=== PATIENT | female | born 1945 | race Caucasian/White ===

== ENCOUNTER 2017-05-09 13:25 | Emergency (ER) | payer MEDICARE, OTHER ==
[~2017-05-09] VITALS: Ht 167.6 cm; Wt 72.7 kg
[~2017-05-09 13:25] MED LIST: AMLO5TAB4 PO; ASPI-535 PO; EZET1TAB9 PO; HYT2 PO; LOSA1TAB9 PO; METO-104 PO; VALS1TAB65 PO
[2017-05-09 13:28] VITALS: Ht 167.6 cm; Wt 72.7 kg
[2017-05-09] MEDS ORDERED: ASPIRIN 81 MG TAB PO STA (14:02)
--- NOTE | 2017-05-09 14:08 | ERD ---
ER Documentation Chief Complaint Chief Complaint Pt RA 100 with c/c CP and SOB and L scapula pain. HPI Patient is a 71-year-old female who presents with sudden onset, constant, moderate, cramping pain to her left upper back and shoulder for 1 hour. She reports feeling anxious and slightly short of breath. She denies diaphoresis, nausea or vomiting. She denies cough. She denies chest pain. She reports that she went to her primary care doctor's office today due to concern about elevated blood pressure, and was given reassurance and advised to follow-up in a few days. She did not accept this reassurance and has been feeling anxious about her blood pressure being persistently high since that time. ROS All systems reviewed and are negative except as per history of present illness. Medications Home Meds Active Scripts Cyclobenzaprine Hcl* (Cyclobenzaprine Hcl*) 10 Mg Tablet, 10 MG PO TID, #21 TAB Prov:MONIQUE TRIMBLE MD 05/09/17 Reported Medications Atorvastatin Calcium* (Atorvastatin Calcium*) 20 Mg Tablet, 20 MG PO QHS, #30 TAB 05/09/17 Ferrous Sulfate* (Ferrous Sulfate*) 325 Mg Tabec, 325 MG PO BID, TAB 05/09/17 Valsartan* (Diovan*) 320 Mg Tablet, 320 MG PO DAILY, TAB 05/09/17 Metoprolol Succinate* (Toprol XL*) 50 Mg Tab.er.24h, 50 MG PO DAILY, #30 TAB 05/09/17 Amlodipine Besylate* (Amlodipine Besylate*) 10 Mg Tablet, 10 MG PO DAILY, #30 TAB 05/09/17 Hydralazine Hcl* (Hydralazine Hcl*) 25 Mg Tab, 25 MG PO TID, #120 TAB TAKE 2 TAB-QAM, 1 TAB-Q NOON,2 TAB-QPM 05/09/17 Alprazolam* (Alprazolam*) 0.5 Mg Tablet, 0.5 MG PO QHS Y for ANXIETY, TAB 05/09/17 Metformin Hcl* (Metformin Hcl*) 500 Mg Tablet, 1000 MG PO WITH BREAKFAST DINNE, #60 TAB 05/09/17 Discontinued Reported Medications Terazosin Hcl* (Hytrin*) 2 Mg Capsule, 2 MG PO DAILY 06/21/11 Losartan-Hydrochlorothiazide (Hyzaar) 1 Tab Tablet, 1 TAB PO DAILY 06/21/11 Amlodipine Besylate* (Norvasc*) 5 Mg Tablet, 5 MG PO DAILY 06/21/11 Ezetimibe-Simvastatin (Vytorin) 1 Tab Tablet, 1 TAB PO DAILY 06/21/11 Valsartan-Hydrochlorothiazide (Diovan HCT) 1 Tab Tablet, 1 TAB PO DAILY 06/21/11 Metoprolol Succinate (Toprol Xl) 100 Mg Tab.sr.24h, 100 MG PO DAILY 06/21/11 Aspirin Ec (Aspir 81) 81 Mg Tablet.dr, 81 MG PO DAILY, 0 Refills 06/20/10 Allergies Allergies: Coded Allergies: No Known Allergy (Unverified , 05/09/17) PMhx/Soc Past medical history: Diabetes mellitus, hypertension, coronary artery disease, hyperlipidemia Past surgical history: Four-vessel CABG Social history: Denies tobacco or alcohol History of Surgery: Yes (CABG X 2 2004) Anesthesia Reaction: No Hx Neurological Disorder: No Hx Respiratory Disorders: No Hx Cardiac Disorders: Yes (HYPERTENSION, HX CABG X2 ,2004) Hx Psychiatric Problems: No Hx Miscellaneous Medical Probl: No Hx Alcohol Use: No Hx Substance Use: No Hx Tobacco Use: No FmHx Noncontributory Physical Exam Vitals Vital Signs Date Time Temp Pulse Resp B/P Pulse Ox O2 Delivery O2 Flow Rate FiO2 05/09/17 17:36 71 22 140/62 99 Room Air 05/09/17 16:58 70 20 143/66 Room Air 05/09/17 14:55 97.8 76 16 152/72 98 Room Air 05/09/17 14:00 97.6 75 18 173/70 98 Room Air 05/09/17 13:28 97.9 90 24 189/87 99 Physical Exam Const: Alert, no acute distress appears anxious, apparently voluntary shaking movements. Head: Atraumatic Eyes: Normal Conjunctiva, No pallor, no icterus ENT: Normal External Ears, Nose and Mouth. Mucous membranes moist Neck: Full range of motion. No JVD Resp: Clear to auscultation bilaterally, No wheezes, no rales Cardio: Regular rate and rhythm, no murmurs Abd: Soft, non tender, non distended. Skin: No petechiae or rashes Back: No midline or flank tenderness Ext: No cyanosis, or edema, 2+ pulses in 4 extremities Neur: Awake and alert, Cranial nerves II through XII intact bilaterally, strength and sensation full in 4 extremities, shaking movements that appear voluntary Psych: Normal Mood and Anxious Affect Result Diagram: 05/09/17 1420 05/09/17 1420 Results 24 hrs Laboratory Tests Test 05/09/17 14:20 05/09/17 17:45 White Blood Count 7.110^3/ul Red Blood Count 3.5510^6/ul Hemoglobin 10.1g/dl Hematocrit 29.6% Mean Corpuscular Volume 83.4fl Mean Corpuscular Hemoglobin 28.5pg Mean Corpuscular Hemoglobin Concent 34.1g/dl Red Cell Distribution Width 13.2% Platelet Count 64379^3/UL Mean Platelet Volume 9.8fl Neutrophils % 70.5% Lymphocytes % 19.0% Monocytes % 9.0% Eosinophils % 0.8% Basophils % 0.4% Nucleated Red Blood Cells % 0.0/100WBC Neutrophils # 5.010^3/ul Lymphocytes # 1.410^3/ul Monocytes # 0.610^3/ul Eosinophils # 0.110^3/ul Basophils # 0.010^3/ul Nucleated Red Blood Cells # 0.010^3/ul Sodium Level 132mmol/L Potassium Level 4.2mmol/L Chloride Level 98mmol/L Carbon Dioxide Level 23mmol/L Anion Gap 15 Blood Urea Nitrogen 20mg/dl Creatinine 1.05mg/dl Glucose Level 105mg/dl Calcium Level 10.1mg/dl Troponin I < 0.012ng/ml < 0.012ng/ml B-Type Natriuretic Peptide 440PG/ML Current Medications Medications (Trade) Dose Ordered Sig/Inocente Route PRN Reason Start Time Stop Time Status Last Admin Dose Admin Aspirin (Aspirin) 162 mg ONCE STAT PO 05/09/17 14:02 05/09/17 14:03 DC 05/09/17 14:30 Lorazepam (Ativan) 0.5 mg ONCE ONCE PO 05/09/17 14:30 05/09/17 14:31 DC 05/09/17 14:30 Procedures/MDM EKG read by me: Time 1337, rate 81 Rhythm: Normal sinus [place]: Normal Intervals: Normal ST-T waves: Nonspecific ST abnormality in high lateral leads only Ectopy: No Q-waves: No Impression: No arrhythmia, nonspecific ST change not likely to be ischemic EKG read by me: Time 1408, rate 83 Rhythm: Normal sinus [place]: Normal Intervals: Normal ST-T waves: no ischemic changes Ectopy: No Q-waves: No Impression: No evidence of ischemia or arrhythmia MDM: Patient is a 71-year-old female who presents to the ER with complaint of left shoulder pain. Over time, she came to complain of muscle aches in her upper back in 4 extremities as well. She denied having any chest pain on serial evaluations. She did report feeling slightly short of breath. She appeared very anxious, and although denying history of anxiety, she had a prescription for Xanax among her medications. On further inquiry, she did state that she has had significant anxiety, and her daughter reports that she has been very anxious about her elevated blood pressure. The patient was given a small dose of Ativan, and her symptoms improved and blood pressure normalized. Given her extensive cardiac history, EKG and troponins were performed and are negative. I am confident that the patient's symptoms are not related to coronary ischemia. There are no symptoms or signs suggestive of pulmonary embolism or aortic dissection. The patient's chest x-ray is normal. The patient will be discharged with return precautions and PMD in the next 1-2 days for blood pressure recheck and further counseling. She is given a prescription for Flexeril for muscle spasm. Departure Diagnosis: Primary Impression: Anxiety Additional Impression: Muscle spasm Condition: MONIQUE Solorzano MD May 09, 2017 14:08
[2017-05-09 14:28] LABS: BASOPHILS % 0.4 % (0.0-2.0); EOSINOPHILS # 0.1 10^3/ul (0.0-0.5); EOSINOPHILS % 0.8 % (0.0-7.0); HEMATOCRIT 29.6 % (37.0-47.0); HEMOGLOBIN 10.1 g/dl (12.0-16.0); LYMPHOCYTES # 1.4 10^3/ul (0.8-2.9); MEAN CORPUSCULAR HEMOGLOBIN 28.5 pg (29.0-33.0); MEAN CORPUSCULAR HGB CONC 34.1 g/dl (32.0-37.0); MEAN CORPUSCULAR VOLUME 83.4 fl (82.0-101.0); MEAN PLATELET VOLUME 9.8 fl (7.4-10.4); MONOCYTE # 0.6 10^3/ul (0.3-0.9); NEUTROPHILS % 70.5 % (39.0-77.0); PLATELET COUNT 335 10^3/UL (140-415); RED BLOOD COUNT 3.55 10^6/ul (4.20-5.40); RED CELL DISTRIBUTION WIDTH 13.2 % (11.5-14.5); WHITE BLOOD COUNT 7.1 10^3/ul (4.8-10.8)
--- NOTE | 2017-05-09 14:29 | RADRPT ---
PROCEDURE: Chest x-ray CLINICAL INDICATION: Chest pain TECHNIQUE: Chest single view COMPARISON: 06/21/2011 FINDINGS: There is post sternotomy changes. Stable cardiomegaly and atherosclerotic aortic calcification is se en. There is calcified mediastinal lymph node suggesting old granulomatous disease. The pulmonary v essels are normal in caliber. The lungs are clear. The costophrenic angles are sharp. The visuali zed bony thorax is unremarkable. IMPRESSION: No acute cardiopulmonary disease. Stable cardiomegaly and an sclerotic aortic calcification Calcified mediastinal lymph node suggesting old granulomatous disease Status post CABG RPTAT: HH .Alexey Patel MD, MD Date Time Electronically viewed and signed by .Alexey Patel MD, on 05/09/2017 14:29 .W/
[2017-05-09] MEDS ORDERED: LORAZEPAM 0.5 MG TAB PO ONE (14:30)
[2017-05-09 14:52] LABS: ANION GAP 15 (8-16); BLOOD UREA NITROGEN 20 mg/dl (7-20); CALCIUM 10.1 mg/dl (8.4-10.2); CARBON DIOXIDE 23 mmol/L (21-31); CHLORIDE 98 mmol/L (97-110); CREATININE 1.05 mg/dl (0.44-1.00); GLUCOSE 105 mg/dl (70-220); POTASSIUM 4.2 mmol/L (3.5-5.1); SODIUM 132 mmol/L (135-144)
[2017-05-09 15:01] LABS: B-TYPE NATRIURETIC PEPTIDE 440 PG/ML (0-125)
[2017-05-09 15:11] LABS: TROPONIN-I < 0.012 ng/ml (0.00-0.12)
[2017-05-09] MEDS ORDERED: ALPR0.5T6 PO (16:23)
[2017-05-09] MEDS ORDERED: METF500T4 PO (16:23)
[2017-05-09] MEDS ORDERED: HYDR-3671 PO (16:24)
[2017-05-09] MEDS ORDERED: VALS320T11 PO (16:25)
[2017-05-09] MEDS ORDERED: METO-319 PO (16:25)
[2017-05-09] MEDS ORDERED: AMLO-147 PO (16:25)
[2017-05-09] MEDS ORDERED: ATOR20TA38 PO (16:26)
[2017-05-09] MEDS ORDERED: FER325 PO (16:26)
[2017-05-09] MEDS ORDERED: CYCL-319 PO (18:50)
[2017-05-09 19:22] VITALS: BP 123/54; PULSE 81; RESP 18; TEMP 97.8
== END 2017-05-09 19:25 | disposition home or self-care (01) ==
LOC: E/R 13:25
DX: F41.9 Anxiety disorder, unspecified (principal); M62.830 Muscle spasm of back
CPT/HCPCS: 71010; 80048; 83880; 84484; 85025; 93005

== ENCOUNTER 2018-09-28 22:02 | Emergency (ER) | payer MEDICARE, OTHER ==
[~2018-09-28] VITALS: Ht 157.5 cm; Wt 61.2 kg
[~2018-09-28 22:02] MED LIST changes: +ALPR0.5T6 PO; +AMLO-147 PO; -AMLO5TAB4 PO; -ASPI-535 PO; +ATOR20TA38 PO; +CYCL10TA7 PO; -EZET1TAB9 PO; +FER325 PO; +HYDR-3671 PO; -HYT2 PO; -LOSA1TAB9 PO; +METF500T24 PO; -METO-104 PO; +METO-319 PO; -VALS1TAB65 PO; +VALS320T2 PO
[2018-09-28 22:04] VITALS: BP 130/60; PULSE 65; RESP 18; Ht 157.5 cm; Wt 61.2 kg
== END 2018-09-28 22:21 | disposition left against medical advice (07) ==
LOC: FTE 22:02
DX: Z53.21 Procedure and treatment not carried out due to patient leaving prior to being seen by health care provider (principal)